=== PATIENT | male | born 1990 | race Caucasian/White ===

== ENCOUNTER 2020-05-12 18:45 | Emergency (ER) | payer OTHER ==
[~2020-05-12] VITALS: Ht 182.9 cm; Wt 100.0 kg
[2020-05-12 18:52] VITALS: BP 150/80
[2020-05-12] MEDS ORDERED: triamcinolone acetonide 40mg/ml inj IM ONE (19:30)
[2020-05-12] MEDS ORDERED: HYDR28CR14 TOP (19:36)
[2020-05-12] MEDS ORDERED: PRED10TA PO (19:36)
== END 2020-05-12 19:58 | disposition home or self-care (01) ==
LOC: ER 18:46
DX: L23.7 Allergic contact dermatitis due to plants, except food (principal); Z79.899 Other long term (current) drug therapy
CPT/HCPCS: 96372; 99283; J3301